=== PATIENT | male | born 1980 | race Two or more races ===

== ENCOUNTER → 2018-12-24 | Emergency (ER) | payer OTHER ==
[~2018-12-24] VITALS: Ht 190.5 cm; Wt 97.5 kg
[~2018-12-24] MED LIST: AMOX1TAB12 PO; COZAAR100 MG; MOTRIN800 MG PO; PROTONIX40 MG PO
== END | disposition home or self-care (01) ==
LOC: ER 19:55
DX: J06.9 Acute upper respiratory infection, unspecified (principal); M62.838 Other muscle spasm; I10 Essential (primary) hypertension

== ENCOUNTER 2019-04-01 08:39 | Emergency (ER) | payer OTHER ==
[~2019-04-01] VITALS: Ht 190.5 cm; Wt 97.5 kg
[2019-04-01] MEDS ORDERED: METHYLPREDNISOLO8 MG PO (08:53)
[2019-04-01] MEDS ORDERED: MOBIC7.5 MG PO (08:53)
== END 2019-04-01 09:25 | disposition home or self-care (01) ==
LOC: ER 08:39
DX: M54.5 Low back pain (principal)

== ENCOUNTER 2019-05-04 09:00 | Emergency (ER) | payer OTHER ==
[~2019-05-04] VITALS: Ht 190.5 cm; Wt 97.5 kg
[~2019-05-04 09:00] MED LIST changes: +METHYLPREDNISOLO8 MG PO; +MOBIC7.5 MG PO
[2019-05-04] MEDS ORDERED: PROTONIX40 M1 (09:28)
== END 2019-05-04 13:23 | disposition home or self-care (01) ==
LOC: ER 09:00
DX: K29.70 Gastritis, unspecified, without bleeding (principal)

== ENCOUNTER 2019-07-05 12:53 | Emergency (ER) | payer OTHER ==
[~2019-07-05] VITALS: Ht 190.5 cm; Wt 96.6 kg
[~2019-07-05 12:53] MED LIST changes: +PROTONIX40 M1
== END 2019-07-05 18:43 | disposition home or self-care (01) ==
LOC: ER 12:53
DX: I10 Essential (primary) hypertension (principal); F06.4 Anxiety disorder due to known physiological condition

== ENCOUNTER → 2023-08-02 | Emergency (ER) | payer OTHER ==
[~2023-08-02] VITALS: Ht 190.5 cm; Wt 95.3 kg
== END | disposition left against medical advice (07) ==
LOC: ER 18:40
DX: Z53.21 Procedure and treatment not carried out due to patient leaving prior to being seen by health care provider (principal)

== ENCOUNTER 2023-12-03 09:40 | Inpatient (IN) | payer OTHER ==
[~2023-12-03] VITALS: Ht 190.5 cm; Wt 100.2 kg
--- NOTE | 2023-12-03 10:12 | NUR ---
SE RECIBE PTE ALERTA Y ORIENTADO X3, EL MISMO REFIERE QUE DESDE HACE 3 SEMANAS JACK PRESENTADO MALESTAR GENERAL, REFIERE QUE JACK PRESENTADO EPISODIOS DE MAREOS, QUE SE SIENTE OCASIONES AMARILLO Y QUE CUANDO EVACUA SIENTE QUE ESTA MUY LAURA, SE MIDEN S/V Y SE UBICA
--- NOTE | 2023-12-03 11:09 | NUR ---
PTE ALERTA Y ORIENTADO X3. SE REALIZAN MUESTRAS DE LAB BRENDA ORDEN MEDICA Y BAJO MEDIDAS SEPTICAS POR CRISELDA TRUJILLO.
[2023-12-03 11:16] LABS: MEAN CORPUSCULAR HGB CONC 25.2 g/dl (32.0-36.0); RED BLOOD COUNT 3.87 M/uL (4.00-6.00)
[2023-12-03 11:17] LABS: MEAN CORPUSCULAR HEMOGLOBIN 12.4 pg (27.00-32.0)
[2023-12-03 11:24] LABS: HEMATOCRIT 19.1 % (39.0-48.0); HEMOGLOBIN 4.8 g/dL (13-16.00)
[2023-12-03 11:25] LABS: MEAN CELL VOLUME 49.5 fL (80.0-100.00)
[2023-12-03 11:25] LABS: URINE APPEARANCE Cloudy; URINE BILIRRUBIN Negative (NEGATIVE); URINE BLOOD Negative; URINE COLOR Yellow; URINE GLUCOSE Negative (NEGATIVE); URINE KETONE Negative (NEGATIVE); URINE LEUKOCYTE Negative; URINE NITRATE Negative; URINE PROTEIN Negative (NEGATIVE)
[2023-12-03 11:27] LABS: RED CELL DISTRIBUTION WIDTH 24.6 % (11.5-14.5)
[2023-12-03 11:29] LABS: URINE BACTERIA 23.9 uL (0.0-1933); URINE EPITHELIAL CELLS 2.3 uL (0.0-38.8); URINE RBC 1.5 uL (0.0-20.8); URINE WBC 4.9 uL (0.0-23.2)
[2023-12-03] MEDS ORDERED: 0.9 % SODIUM CHLORIDE 1,000 ML IV STA (11:30)
[2023-12-03] MEDS ORDERED: FAMOTIDINE/PF 20 MG/2 ML VIAL IV PUSH STA (11:30)
[2023-12-03 11:38] LABS: ALBUMIN 3.5 gm/dL (3.4-5.0); BILIRUBIN TOTAL 0.9 mg/dL (0.3-1.2); CALCIUM 8.4 mg/dL (8.5-10.1); CREATININE SERUM 0.87 mg/dL (0.70-1.30); GFR 94.89; GLOBULINA 3.2 G/DL (2.4-3.5); POTASSIUM 3.88 mEq/L (3.5-5.1); TOTAL PROTEIN 6.7 gm/dL (6.4-8.2)
[2023-12-03] MEDS ORDERED: PANTOPRAZOLE SODIUM 40 MG/VIAL VIAL IV PUSH STA (11:46)
[2023-12-03 11:50] LABS: PLATELET COUNT 163 K/uL (150-450)
--- NOTE | 2023-12-03 12:19 | NUR ---
PACIENTE REEVALUADO POR QUIEN ORDENA TX MEDICO, SE LE ORIENTA A PACIENTE SOBRE EL MISMO Y VERBALIZA ENTENDER, SE UBICA PACIENTE EN OBSERVACION, SE CANALIZA PACIENTE X2 EN BRAZO EDWARDO, SE LE COLOCAN IV FLUIDS Y DRIP DE PROTONIX BAJANDO A 10ML/HR. SE LE AMADOR PERMISO PARA TRANSFUCION, SE LE REQUISAN 2 UNIDADES PRBC'S A PACIENTE, SE LLEVAN A LABORTORIO Y BANCO DE ANDRE INDICA QUE PACIENTE NO TIENE RECORD PREVIO, SE AMADOR TERCER TUBO YAMILETH Y SE JV EL MISMO CON PERSONAL DE LABORATORIO. SE MANTIENE PACIENTE BAJO OBSERVACION POR CAMBIOS EN TRATAMIENTO MEDICO.
[2023-12-03] MEDS ORDERED: PANTOPRAZOLE SODIUM 40 MG/VIAL VIAL IV SCH (12:30)
[2023-12-03 14:22] LABS: INR 1.1; PARTIAL THROMBOPLASTIN TIME 24.1 SECONDS (22.0-34.0); PROTHROMBIN TIME 11.5 SECONDS (9.0-11.5)
[2023-12-03] MEDS ORDERED: CLONAZEPAM 0.5 MG TABLET PO PRN (18:30)
[2023-12-03] MEDS ORDERED: ENALAPRILAT DIHYDRATE 1.25 MG/ML VIAL IV PRN (18:30)
[2023-12-04 07:56] LABS: MEAN CORPUSCULAR HGB CONC 27.9 g/dl (32.0-36.0); PLATELET COUNT 136 K/uL (150-450); RED BLOOD COUNT 4.03 M/uL (4.00-6.00)
[2023-12-04 07:59] LABS: HEMOGLOBIN 6.1 g/dL (13-16.00); MEAN CELL VOLUME 54.6 fL (80.0-100.00); MEAN CORPUSCULAR HEMOGLOBIN 15.1 pg (27.00-32.0); RED CELL DISTRIBUTION WIDTH 30.6 % (11.5-14.5)
[2023-12-04] MEDS ORDERED: LOSARTAN POTASSIUM 50 MG TABLET PO SCH (09:00)
[2023-12-04 11:16] LABS: ob POSITIVE (NEGATIVE)
[2023-12-05 01:18] LABS: MEAN CORPUSCULAR HGB CONC 29.1 g/dl (32.0-36.0); RED BLOOD COUNT 4.46 M/uL (4.00-6.00)
[2023-12-05 01:42] LABS: MEAN CELL VOLUME 58.3 fL (80.0-100.00); RED CELL DISTRIBUTION WIDTH 35.3 % (11.5-14.5)
[2023-12-05 01:43] LABS: HEMOGLOBIN 7.6 g/dL (13-16.00)
[2023-12-05 01:44] LABS: PLATELET COUNT 131 K/uL (150-450)
[2023-12-05 14:37] LABS: HEMATOCRIT 29.6 % (39.0-48.0); MEAN CELL VOLUME 59.6 fL (80.0-100.00); MEAN CORPUSCULAR HEMOGLOBIN 17.5 pg (27.00-32.0); MEAN CORPUSCULAR HGB CONC 29.4 g/dl (32.0-36.0); RED BLOOD COUNT 4.97 M/uL (4.00-6.00); RED CELL DISTRIBUTION WIDTH 36.3 % (11.5-14.5)
[2023-12-05 14:43] LABS: PLATELET COUNT 112 K/uL (150-450)
[2023-12-05 14:52] LABS: HEMOGLOBIN 8.7 g/dL (13-16.00)
[2023-12-05] MEDS ORDERED: fentaNYL CITRATE 50 MCG/ML AMPUL IV ONE (16:15)
[2023-12-05] MEDS ORDERED: MIDAZOLAM HCL 2 MG/2 ML VIAL IV ONE (16:30)
[2023-12-05] MEDS ORDERED: PEG3350/SOD SULF,BICARB,CL/KCL 4,000 ML GALLON PO NR (19:00)
[2023-12-06 01:44] LABS: HEMATOCRIT 33.1 % (39.0-48.0); MEAN CORPUSCULAR HEMOGLOBIN 18.5 pg (27.00-32.0); MEAN CORPUSCULAR HGB CONC 29.8 g/dl (32.0-36.0); RED BLOOD COUNT 5.33 M/uL (4.00-6.00); RED CELL DISTRIBUTION WIDTH 37.7 % (11.5-14.5)
[2023-12-06 01:45] LABS: PLATELET COUNT 169 K/uL (150-450)
[2023-12-06 01:48] LABS: HEMOGLOBIN 9.9 g/dL (13-16.00)
[2023-12-06] MEDS ORDERED: MIDAZOLAM HCL 2 MG/2 ML VIAL IV ONE (14:45)
[2023-12-06] MEDS ORDERED: DIPHENHYDRAMINE HCL 50 MG/ML VIAL 1ML IV ONE (14:45)
[2023-12-06] MEDS ORDERED: FentaNYL CITRATE/PF 50MCG/ML 2ML VIAL IJ ONE (14:45)
[2023-12-07] MEDS ORDERED: DIATRIZOATE MEGLUMINE, SODIUM 30 ML BOTTLE PO ONE (06:00)
[2023-12-07 06:22] LABS: HEMATOCRIT 30.6 % (39.0-48.0); MEAN CORPUSCULAR HEMOGLOBIN 19.6 pg (27.00-32.0); MEAN CORPUSCULAR HGB CONC 31.3 g/dl (32.0-36.0); RED BLOOD COUNT 4.89 M/uL (4.00-6.00)
[2023-12-07 06:45] LABS: MEAN CELL VOLUME 62.6 fL (80.0-100.00); PLATELET COUNT 149 K/uL (150-450); RED CELL DISTRIBUTION WIDTH 38.4 % (11.5-14.5)
[2023-12-07 06:46] LABS: HEMOGLOBIN 9.6 g/dL (13-16.00)
[2023-12-08 08:28] LABS: CALCIUM 9.1 mg/dL (8.5-10.1); CREATININE SERUM 0.74 mg/dL (0.70-1.30); GFR 114.38; POTASSIUM 4.27 mEq/L (3.5-5.1)
[2023-12-08 09:08] LABS: HEMATOCRIT 34.9 % (39.0-48.0); HEMOGLOBIN 10.3 g/dL (13-16.00); MEAN CORPUSCULAR HEMOGLOBIN 18.4 pg (27.00-32.0); MEAN CORPUSCULAR HGB CONC 29.4 g/dl (32.0-36.0); PLATELET COUNT 148 K/uL (150-450); RED BLOOD COUNT 5.59 M/uL (4.00-6.00)
[2023-12-08 09:09] LABS: MEAN CELL VOLUME 62.5 fL (80.0-100.00); RED CELL DISTRIBUTION WIDTH 38.5 % (11.5-14.5)
[2023-12-10 06:34] LABS: HEMATOCRIT 30.2 % (39.0-48.0); HEMOGLOBIN 9.7 g/dL (13-16.00); MEAN CORPUSCULAR HEMOGLOBIN 20.3 pg (27.00-32.0); PLATELET COUNT 132 K/uL (150-450); RED BLOOD COUNT 4.76 M/uL (4.00-6.00)
[2023-12-10 07:48] LABS: MEAN CELL VOLUME 63.4 fL (80.0-100.00); RED CELL DISTRIBUTION WIDTH 37.9 % (11.5-14.5)
[2023-12-11] MEDS ORDERED: CEFAZOLIN SODIUM 2,000 MG in DEXTROSE 5 % IN WATER 100 ML IV SCH (01:00)
[2023-12-11] MEDS ORDERED: METRONIDAZOLE/SODIUM CHLORIDE 500 MG/100 ML PIGGYBACK IV SCH (10:45)
[2023-12-11] MEDS ORDERED: CEFTRIAXONE SODIUM 2,000 MG VIAL IV SCH (10:45)
[2023-12-11 18:41] LABS: HEMATOCRIT 34.4 % (39.0-48.0); HEMOGLOBIN 10.6 g/dL (13-16.00); MEAN CORPUSCULAR HGB CONC 30.9 g/dl (32.0-36.0); RED BLOOD COUNT 5.26 M/uL (4.00-6.00)
[2023-12-11 19:08] LABS: MEAN CELL VOLUME 65.4 fL (80.0-100.00); PLATELET COUNT 126 K/uL (150-450); RED CELL DISTRIBUTION WIDTH 37.4 % (11.5-14.5)
[2023-12-11 19:09] LABS: MEAN CORPUSCULAR HEMOGLOBIN 20.2 pg (27.00-32.0)
[2023-12-11] MEDS ORDERED: CLONAZEPAM 0.5 MG TABLET PO PRN (19:30)
[2023-12-12] MEDS ORDERED: BUPIVACAINE HCL/MPF 0.5% 30ML VIAL ONE (09:12)
[2023-12-12] MEDS ORDERED: CEFTRIAXONE SODIUM 2,000 MG VIAL ONE (09:47)
[2023-12-12] MEDS ORDERED: METRONIDAZOLE/SODIUM CHLORIDE 500 MG/100 ML PIGGYBACK IV ONE ×2 (09:47→10:30)
[2023-12-12] MEDS ORDERED: CEFTRIAXONE SODIUM 2,000 MG VIAL IV ONE (10:30)
[2023-12-12] MEDS ORDERED: BUPIVACAINE HCL 30 ML VIAL IJ ONE (10:30)
[2023-12-12] MEDS ORDERED: OxyCODONE HCL 5 MG TABLET (ROXICODONE) PO PRN (12:30)
[2023-12-12] MEDS ORDERED: RINGERS SOLUTION,LACTATED 1,000 ML IV SCH (12:30)
[2023-12-12] MEDS ORDERED: MORPHINE SULFATE 4 MG/ML CARTRIDGE IV PRN (12:30)
[2023-12-12] MEDS ORDERED: ONDANSETRON HCL 2 MG/ML VIAL IV PRN (12:30)
[2023-12-12] MEDS ORDERED: SIMETHICONE 125 MG CAPSULE PO SCH (13:00)
[2023-12-12] MEDS ORDERED: HYOSCYAMINE SULFATE 0.125 MG TAB.SUBL SL SCH (13:00)
[2023-12-12 13:51] LABS: HEMATOCRIT 34.9 % (39.0-48.0); HEMOGLOBIN 10.7 g/dL (13-16.00); MEAN CELL VOLUME 65.1 fL (80.0-100.00); MEAN CORPUSCULAR HGB CONC 30.7 g/dl (32.0-36.0); PLATELET COUNT 121 K/uL (150-450); RED BLOOD COUNT 5.36 M/uL (4.00-6.00); RED CELL DISTRIBUTION WIDTH 37.4 % (11.5-14.5)
[2023-12-12] MEDS ORDERED: ACETAMINOPHEN 500 MG GEL..CAP PO SCH (14:00)
[2023-12-12] MEDS ORDERED: METOCLOPRAMIDE HCL 5 MG/ML VIAL IV SCH (17:00)
[2023-12-12] MEDS ORDERED: POLYETHYLENE GLYCOL 3350 17 GM BLIST.PACK PO SCH (17:00)
[2023-12-12] MEDS ORDERED: GABAPENTIN 300 MG CAPSULE PO SCH (17:00)
[2023-12-12] MEDS ORDERED: FAMOTIDINE/PF 20 MG/2 ML VIAL IV PUSH SCH (21:00)
[2023-12-12] MEDS ORDERED: CELECOXIB 200 MG CAPSULE PO SCH (21:00)
[2023-12-13 06:42] LABS: ALBUMIN 3.2 gm/dL (3.4-5.0); CALCIUM 8.9 mg/dL (8.5-10.1); CREATININE SERUM 0.65 mg/dL (0.70-1.30); GFR 132.84; MAGNESIUM 1.7 mg/dL (1.8-2.4); PHOSPHOROUS 3.9 mg/dL (2.5-4.9)
[2023-12-13 06:56] LABS: POTASSIUM 4.53 mEq/L (3.5-5.1)
[2023-12-13 08:22] LABS: HEMATOCRIT 33.4 % (39.0-48.0); HEMOGLOBIN 10.4 g/dL (13-16.00); MEAN CORPUSCULAR HEMOGLOBIN 20.4 pg (27.00-32.0); MEAN CORPUSCULAR HGB CONC 31.2 g/dl (32.0-36.0); PLATELET COUNT 153 K/uL (150-450); RED BLOOD COUNT 5.11 M/uL (4.00-6.00)
[2023-12-13 08:23] LABS: MEAN CELL VOLUME 65.3 fL (80.0-100.00); RED CELL DISTRIBUTION WIDTH 37.1 % (11.5-14.5)
[2023-12-13] MEDS ORDERED: LACTOBACILLUS ACIDOPHILUS 1 CAP CAP PO SCH (09:00)
[2023-12-13] MEDS ORDERED: ENOXAPARIN SODIUM 40 MG/0.4 ML SYRINGE SUBCUTANEO SCH (17:00)
[2023-12-14 05:30] LABS: HEMATOCRIT 33.2 % (39.0-48.0); MEAN CORPUSCULAR HGB CONC 31.6 g/dl (32.0-36.0); PLATELET COUNT 174 K/uL (150-450); RED BLOOD COUNT 5.06 M/uL (4.00-6.00)
[2023-12-14 05:35] LABS: HEMOGLOBIN 10.5 g/dL (13-16.00); MEAN CELL VOLUME 65.6 fL (80.0-100.00); MEAN CORPUSCULAR HEMOGLOBIN 20.7 pg (27.00-32.0); RED CELL DISTRIBUTION WIDTH 37.7 % (11.5-14.5)
[2023-12-14] MEDS ORDERED: ENOXAPARIN SODIUM 40 MG/0.4 ML SYRINGE SUBCUTANEO SCH (09:00)
[2023-12-14] MEDS ORDERED: MORPHINE SULFATE 4 MG/ML CARTRIDGE IV PRN (23:00)
[2023-12-15 13:25] LABS: CALCIUM 8.8 mg/dL (8.5-10.1); CREATININE SERUM 0.59 mg/dL (0.70-1.30); GFR 148.55; POTASSIUM 3.87 mEq/L (3.5-5.1)
[2023-12-15 15:44] LABS: HEMATOCRIT 34.3 % (39.0-48.0); HEMOGLOBIN 10.5 g/dL (13-16.00); MEAN CORPUSCULAR HGB CONC 30.5 g/dl (32.0-36.0); PLATELET COUNT 223 K/uL (150-450); RED BLOOD COUNT 5.23 M/uL (4.00-6.00)
[2023-12-15 15:51] LABS: MEAN CELL VOLUME 65.5 fL (80.0-100.00); RED CELL DISTRIBUTION WIDTH 37.6 % (11.5-14.5)
[2023-12-15 16:00] LABS: ALBUMIN 3.4 gm/dL (3.4-5.0); BILIRUBIN TOTAL 1.28 mg/dL (0.3-1.2); CREATININE SERUM 0.62 mg/dL (0.70-1.30); GFR 140.29; GLOBULINA 3.7 G/DL (2.4-3.5); POTASSIUM 4.31 mEq/L (3.5-5.1); TOTAL PROTEIN 7.1 gm/dL (6.4-8.2)
[2023-12-15] MEDS ORDERED: OxyCODONE HCL 5 MG TABLET (ROXICODONE) PO PRN (22:30)
[2023-12-15] MEDS ORDERED: CLONAZEPAM 0.5 MG TABLET PO PRN (22:30)
[2023-12-17] MEDS ORDERED: CELEBREX100 MG PO (10:56)
[2023-12-17] MEDS ORDERED: HYOSCYAMINE0.125 M2 PO (10:56)
[2023-12-17] MEDS ORDERED: MIRALAX17 GM PO (10:56)
[2023-12-17] MEDS ORDERED: NEURONTIN300 MG PO (10:56)
[2023-12-17] MEDS ORDERED: PROTONIX40 M1 PO (10:58)
== END 2023-12-17 13:34 | disposition home or self-care (01) | DRG 330 ==
LOC: ER 09:41 → MEDI 13:53 → ICU 13:53 → MEDI 12-07 21:08
PROVIDERS: General Practice; Surgery; ADMIT Internal Medicine; ATTEND Internal Medicine
PROC: 0DB78ZX Excision of Stomach, Pylorus, Via Natural or Artificial Opening Endoscopic, Diagnostic (ICD-10-PCS; 2023-12-05)
PROC: 0DBQ8ZX Excision of Anus, Via Natural or Artificial Opening Endoscopic, Diagnostic (ICD-10-PCS; 2023-12-06)
PROC: 0DBN8ZX Excision of Sigmoid Colon, Via Natural or Artificial Opening Endoscopic, Diagnostic (ICD-10-PCS; 2023-12-06)
PROC: 0DBM8ZX Excision of Descending Colon, Via Natural or Artificial Opening Endoscopic, Diagnostic (ICD-10-PCS; 2023-12-06)
PROC: 0DBK8ZX Excision of Ascending Colon, Via Natural or Artificial Opening Endoscopic, Diagnostic (ICD-10-PCS; 2023-12-06)
PROC: BW24YZZ Computerized Tomography (CT Scan) of Chest and Abdomen using Other Contrast (ICD-10-PCS; 2023-12-07)
PROC: BW21YZZ Computerized Tomography (CT Scan) of Abdomen and Pelvis using Other Contrast (ICD-10-PCS; 2023-12-07)
PROC: 07BB4ZZ Excision of Mesenteric Lymphatic, Percutaneous Endoscopic Approach (ICD-10-PCS; 2023-12-12)
PROC: 0DTF4ZZ Resection of Right Large Intestine, Percutaneous Endoscopic Approach (ICD-10-PCS; principal; 2023-12-12 07:00)
DX: C18.2 Malignant neoplasm of ascending colon (principal); K92.1 Melena; D63.0 Anemia in neoplastic disease; K20.90 Esophagitis, unspecified without bleeding; R59.0 Localized enlarged lymph nodes

== ENCOUNTER 2024-05-20 07:47 | Day surgery (SDC) | payer OTHER ==
[2024-05-13 08:15] VITALS: BP 155/95
[2024-05-13 08:43] LABS: PH,URINE 6.5 (5.0-8.0); URINE APPEARANCE Clear; URINE BILIRRUBIN Negative (NEGATIVE); URINE BLOOD Negative; URINE COLOR Yellow; URINE GLUCOSE Negative (NEGATIVE); URINE KETONE Negative (NEGATIVE); URINE LEUKOCYTE Negative; URINE NITRATE Negative; URINE PROTEIN Negative (NEGATIVE); URINE UROBILINOGEN 0.2 E.U./dl
[2024-05-13 08:44] LABS: URINE BACTERIA 40.3 uL (0.0-1933); URINE EPITHELIAL CELLS 1.8 uL (0.0-38.8); URINE RBC 4.2 uL (0.0-20.8); URINE WBC 2.2 uL (0.0-23.2)
[2024-05-13 08:45] LABS: URINE CAST 0.14 uL (0.0-1.40)
[2024-05-13 08:47] LABS: HEMATOCRIT 42.7 % (39.0-48.0); HEMOGLOBIN 14.3 g/dL (13-16.00); MEAN CELL VOLUME 81.3 fL (80.0-100.00); MEAN CORPUSCULAR HEMOGLOBIN 27.2 pg (27.00-32.0); MEAN CORPUSCULAR HGB CONC 33.5 g/dl (32.0-36.0); PLATELET COUNT 142 K/uL (150-450); RED BLOOD COUNT 5.25 M/uL (4.00-6.00)
[2024-05-13 08:57] LABS: RED CELL DISTRIBUTION WIDTH 18.9 % (11.5-14.5)
[2024-05-13 09:25] LABS: PARTIAL THROMBOPLASTIN TIME 26.8 SECONDS (22.0-34.0); PROTHROMBIN TIME 10.9 SECONDS (9.0-11.5)
[2024-05-13 09:45] LABS: ALBUMIN 4.3 gm/dL (3.4-5.0); BILIRUBIN TOTAL 0.93 mg/dL (0.3-1.2); CALCIUM 9.5 mg/dL (8.5-10.1); CREATININE SERUM 0.71 mg/dL (0.70-1.30); GFR 119.97; GLOBULINA 3.8 G/DL (2.4-3.5); POTASSIUM 4.06 mEq/L (3.5-5.1); TOTAL PROTEIN 8.1 gm/dL (6.4-8.2)
[~2024-05-20] VITALS: Ht 190.5 cm; Wt 102.1 kg
[~2024-05-20 07:47] MED LIST changes: +CELEBREX100 MG PO; +HYOSCYAMINE0.125 M2 PO; +MIRALAX17 GM PO; +NEURONTIN300 MG PO; +PEPCID AC20 MG; +PROTONIX40 M1 PO
[2024-05-20] MEDS ORDERED: CEFAZOLIN SODIUM 1,000 MG VIAL ONE ×2 (12:29→15:15)
[2024-05-20] MEDS ORDERED: HEPARIN SODIUM,PORCINE/PF 100 UNIT/ML SYRINGE IV ONE (13:20)
[2024-05-20] MEDS ORDERED: LIDOCAINE HCL 1% 20 ML VIAL IJ ONE ×2 (13:20→14:07)
[2024-05-20] MEDS ORDERED: CEFAZOLIN SODIUM 1,000 MG VIAL IV SCH (14:45)
[2024-05-20] MEDS ORDERED: FAMOTIDINE/PF 20 MG/10 ML SYRINGE IV SCH (14:45)
[2024-05-20] MEDS ORDERED: FAMOTIDINE/PF 20 MG/2 ML VIAL ONE (15:15)
== END 2024-05-20 16:15 | disposition home or self-care (01) ==
LOC: CIR.AMB 07:47
PROVIDERS: ATTEND Specialist
DX: C18.2 Malignant neoplasm of ascending colon (principal); I10 Essential (primary) hypertension
CPT/HCPCS: 36561; C1751

== ENCOUNTER 2024-07-17 13:58 | Emergency (ER) | payer OTHER ==
[~2024-07-17] VITALS: Ht 190.5 cm; Wt 99.8 kg
[2024-07-17 14:06] VITALS: O2SAT 96
[2024-07-17] MEDS ORDERED: LORazepam 2 MG/ML VIAL IM ONE (14:30)
[2024-07-17] MEDS ORDERED: LORazepam 2 MG/ML VIAL ONE (14:35)
[2024-07-17 15:41] VITALS: BP 150/90
[2024-07-17 15:41] LABS: HEMATOCRIT 43.2 % (39.0-48.0); HEMOGLOBIN 14.4 g/dL (13-16.00); MEAN CELL VOLUME 86.9 fL (80.0-100.00); MEAN CORPUSCULAR HGB CONC 33.4 g/dl (32.0-36.0); PLATELET COUNT 130 K/uL (150-450); RED BLOOD COUNT 4.97 M/uL (4.00-6.00); RED CELL DISTRIBUTION WIDTH 15.8 % (11.5-14.5)
== END 2024-07-17 16:01 | disposition home or self-care (01) ==
LOC: ER 14:01
PROVIDERS: Emergency Medicine
DX: I10 Essential (primary) hypertension (principal); C18.9 Malignant neoplasm of colon, unspecified; F41.8 Other specified anxiety disorders; M79.10 Myalgia, unspecified site

== ENCOUNTER 2024-08-07 21:41 | Emergency (ER) | payer OTHER ==
[~2024-08-07] VITALS: Ht 190.5 cm; Wt 99.8 kg
[2024-08-07] MEDS ORDERED: NORVASC5 MG PO (22:22)
[2024-08-07] MEDS ORDERED: TRAMADOL HCL 50 MG TABLET PO ONE (23:00)
[2024-08-07] MEDS ORDERED: NORFLEX100MG PO (23:05)
== END 2024-08-08 00:56 | disposition home or self-care (01) ==
LOC: ER 21:42
DX: S52.92XA Unspecified fracture of left forearm, initial encounter for closed fracture (principal); V19.88XA Pedal cyclist (driver) (passenger) injured in other specified transport accidents, initial encounter; Y93.55 Activity, bike riding; Y92.488 Other paved roadways as the place of occurrence of the external cause; Z85.038 Personal history of other malignant neoplasm of large intestine

== ENCOUNTER 2024-09-13 14:16 | Emergency (ER) | payer OTHER ==
[~2024-09-13] VITALS: Ht 190.5 cm; Wt 92.1 kg
[~2024-09-13 14:16] MED LIST changes: +NORFLEX100MG PO; +NORVASC5 MG PO
[2024-09-13] MEDS ORDERED: COZAAR100 MG PO (16:17)
[2024-09-13] MEDS ORDERED: KETOROLAC TROMETHAMINE 60 MG VIAL IM ONE (16:45)
[2024-09-13] MEDS ORDERED: NIFEDIPINE 10 MG CAPSULE PO ONE ×2 (16:45→19:15)
[2024-09-13] MEDS ORDERED: ASPIRIN 325 MG TABLET PO ONE (16:45)
[2024-09-13 17:28] LABS: BASO % 0.7 % (0.1-1.2); EOS # 0.04 (0.04-0.54); EOS % 0.7 % (0.7-7.0); HEMOGLOBIN 14.4 g/dL (13.7-17.5); LYMPH # 1.64 (1.18-3.74); LYMPH % 30.5 % (19.3-53.1); MONO # 0.68 (0.24-0.82); NEUT # 2.95 (1.56-6.13); PLATELET COUNT 152 K/uL (163-369); RED BLOOD COUNT 4.97 M/uL (4.63-6.08); RED CELL DISTRIBUTION WIDTH 14.4 % (11.6-14.4)
[2024-09-13 17:33] LABS: MONO % 12.7 % (4.7-12.5)
[2024-09-13 18:20] LABS: BILIRUBIN TOTAL 0.5 mg/dL (0.3-1.2); CALCIUM 9.2 mg/dL (8.5-10.1); CREATININE SERUM 0.96 mg/dL (0.70-1.30); GFR 84.32; GLOBULINA 3.6 G/DL (2.4-3.5); POTASSIUM 3.78 mEq/L (3.5-5.1); TOTAL PROTEIN 7.6 gm/dL (6.4-8.2)
== END 2024-09-13 19:16 | disposition home or self-care (01) ==
LOC: ER 14:21
PROVIDERS: General Practice
DX: R07.81 Pleurodynia (principal); I10 Essential (primary) hypertension; Z85.038 Personal history of other malignant neoplasm of large intestine